=== PATIENT | female | born 1950 | race Caucasian/White ===

== ENCOUNTER → 2017-02-03 | Outpatient (CLI) | payer BC ==
[~2017-02-03] MED LIST: IMITREX100 MG PO; TIROSINT75 MC1 PO; TOPAMAX 25MG25 M1 PO; TOPAMAX50 MG PO; VITAMIN D31000 I1 PO
== END ==
LOC: MC.RAD 16:15
DX: Z12.31 Encounter for screening mammogram for malignant neoplasm of breast (principal); D24.2 Benign neoplasm of left breast; D24.1 Benign neoplasm of right breast

== ENCOUNTER 2017-04-28 05:43 | Observation (INO) | payer BC, MEDICARE ==
[~2017-04-28] VITALS: Ht 180.3 cm; Wt 75.6 kg
[2017-04-28] VITALS (11 sets, daily range): BP systolic 102–1248; BP diastolic 51–89; PULSE 52–95; TEMP 97.7–98.1
[2017-04-28] MEDS ORDERED: TIROSINT75 MC1 PO (06:49)
[2017-04-28] MEDS ORDERED: TOPAMAX50 MG PO (06:50)
[2017-04-28] MEDS ORDERED: VITAMIN D31000 I1 PO (06:51)
[2017-04-28] MEDS ORDERED: TOPAMAX 25MG25 M1 PO (06:51)
[2017-04-28] MEDS ORDERED: IMITREX100 MG PO (06:52)
[2017-04-29 01:09] VITALS: BP 116/58; PULSE 75; TEMP 98.1
[2017-04-29 05:50] VITALS: BP 117/55; PULSE 67; TEMP 97.3
[2017-04-29 09:36] VITALS: BP 110/51; PULSE 68; TEMP 98
== END 2017-04-29 14:20 | disposition home or self-care (01) ==
LOC: SDCO 05:43 → SURG 07:30 → EDSTATUS 07:30 → SDCO 07:30 → SURG 11:16 → SDCO 11:17 → SURG 11:17
DX: N99.3 Prolapse of vaginal vault after hysterectomy (principal); N81.11 Cystocele, midline; I10 Essential (primary) hypertension; G43.909 Migraine, unspecified, not intractable, without status migrainosus; Z80.42 Family history of malignant neoplasm of prostate; E03.9 Hypothyroidism, unspecified
CPT/HCPCS: OP; A4315; A9284; C1713; C1781; J0330; J1100; J1885; J1956; J2405; J2704; J2710; J3010; J7120

== ENCOUNTER → 2018-02-11 | Outpatient (CLI) | payer BC, MEDICARE | LOC: MC.RAD 11:30 | DX: Z12.31 Encounter for screening mammogram for malignant neoplasm of breast (principal) ==

== ENCOUNTER → 2019-03-09 | Outpatient (CLI) | payer BC | LOC: MC.RAD 10:33 | DX: Z12.31 Encounter for screening mammogram for malignant neoplasm of breast (principal) ==

== ENCOUNTER → 2019-05-10 | Outpatient (CLI) | payer BC | LOC: COL.RAD 17:01 | DX: S09.90XA Unspecified injury of head, initial encounter (principal) ==

== ENCOUNTER 2019-09-25 19:00 | Emergency (ER) | payer BC ==
[~2019-09-25] VITALS: Ht 180.3 cm; Wt 75.0 kg
[2019-09-25 19:03] VITALS: TEMP 97.1
[2019-09-25] MEDS ORDERED: NORCO 325 MG-51 TAB PO (20:13)
[2019-09-25 20:20] VITALS: BP 148/81; PULSE 80
== END 2019-09-25 20:29 | disposition home or self-care (01) ==
LOC: COL.ER 19:00
DX: S42.202A Unspecified fracture of upper end of left humerus, initial encounter for closed fracture (principal); E03.9 Hypothyroidism, unspecified; Z88.0 Allergy status to penicillin; Z88.1 Allergy status to other antibiotic agents; W08.XXXA Fall from other furniture, initial encounter

== ENCOUNTER → 2020-05-31 | Outpatient (CLI) | payer MEDICARE, BC ==
[~2020-05-31] MED LIST changes: +NORCO 325 MG-51 TAB PO
== END ==
LOC: MC.RAD 09:15
DX: Z12.31 Encounter for screening mammogram for malignant neoplasm of breast (principal)

== ENCOUNTER → 2021-06-05 | Outpatient (CLI) | payer MEDICARE, BC | LOC: MC.RAD 13:25 | DX: Z12.31 Encounter for screening mammogram for malignant neoplasm of breast (principal) ==

== ENCOUNTER → 2022-06-19 | Outpatient (CLI) | payer MEDICARE, BC | LOC: MC.RAD 06-13 10:30 | DX: Z12.31 Encounter for screening mammogram for malignant neoplasm of breast (principal) ==

== ENCOUNTER 2023-12-28 14:06 | Outpatient (CLI) | payer MEDICARE, BC ==
[~2023-12-28] VITALS: Ht 180.3 cm; Wt 75.5 kg
[2023-12-28 14:02] VITALS: BP 121/66; PULSE 80; TEMP 97.9
== END 2023-12-28 14:10 ==
LOC: EUO 14:06
DX: M81.0 Age-related osteoporosis without current pathological fracture (principal)
CPT/HCPCS: J0897

== ENCOUNTER → 2024-07-18 | Outpatient (CLI) | payer MEDICARE, BC ==
[~2024-07-18] MED LIST changes: +CALCIUM 600MG+D1 TAB PO; +CENTRUM SILVER1 CTB PO; +DIOVAN 160MG160 MG PO; +MYRBETR50MG PO; +PRILOSEC 20MG20 MG PO; +SENNA-S 50 MG-81 TAB PO; +VITAMIN B12 1541 TAB PO
== END ==
LOC: MC.RAD 10:44
DX: Z12.31 Encounter for screening mammogram for malignant neoplasm of breast (principal)